=== PATIENT | male | born 1935 | race Caucasian/White ===

== ENCOUNTER 2017-01-12 13:54 | Observation (INO) | payer MEDICARE, BC ==
[2017-01-12 14:54] LABS: Hematocrit 45 % (42-52); Hemoglobin 14.9 g/dl (14.0-18.0); Mean Corpuscular HGB Conc 33 g/dl (31-36); Mean Corpuscular Hemoglobin 32 pg (27-31); Mean Corpuscular Volume 97 fL (80-94); Mean Platelet Volume 8 um3 (7.4-10.4); Red Blood Count 4.66 10^6/ul (4.0-5.4); Red Cell Distribution Width 14 % (10.5-15); White Blood Count 11.4 10^3/ul (3.5-10.8)
--- NOTE | 2017-01-12 15:01 | RAD ---
HISTORY: Chest pain COMPARISONS: November 12, 2004 VIEWS: 1: frontal portable view of the chest at 2:32 PM FINDINGS: LINES AND TUBES: None. CARDIOMEDIASTINAL SILHOUETTE: The cardiomediastinal silhouette is normal for portable technique. PLEURA: There is elevation of the right hemidiaphragm. LUNG PARENCHYMA: The lungs are clear. ABDOMEN: The upper abdomen is clear. There is no subphrenic gas. BONES AND SOFT TISSUES: No bone or soft tissue abnormalities are noted. IMPRESSION: ELEVATION OF THE RIGHT HEMIDIAPHRAGM
[2017-01-12 15:06] LABS: Troponin I 0.01 ng/mL (<0.04)
[2017-01-12 15:11] LABS: Albumin 3.9 g/dL (3.2-5.2); BUN/Creatinine Ratio 26.5 (8-20); EGFR African American 79.9 (>60); EGFR Non-African American 62.1 (>60); Globulin 2.6 g/dL (2-4); Total Bilirubin 0.6 mg/dL (0.2-1.0); Total Protein 6.5 g/dL (6.4-8.9)
--- NOTE | 2017-01-12 15:22 | RAD ---
HISTORY: Right-sided weakness COMPARISONS: May 30, 2005 TECHNIQUE: Multiple contiguous axial CT scans were obtained of the head without intravenous contrast. FINDINGS: HEMORRHAGE/INFARCT: There is no hemorrhage or acute infarct. MASSES/SHIFT: There is no mass or shift. EXTRA-AXIAL SPACES: There are no extra-axial fluid collections. SULCI AND VENTRICLES: The sulci and ventricles are normal in size and position for the patient's stated age. CEREBRUM: There is hypoattenuation of the periventricular and subcortical white matter. BRAINSTEM: There are no focal parenchymal abnormalities. CEREBELLUM: There are no focal parenchymal abnormalities. VESSELS: The vessels are grossly normal. PARANASAL SINUSES: The paranasal sinuses are clear. ORBITS: The orbits are unremarkable. BONES AND SOFT TISSUE: No bone or soft tissue abnormalities are noted. OTHER: None IMPRESSION: 1. NO ACUTE INTRACRANIAL PATHOLOGY. 2. CHRONIC SMALL VESSEL ISCHEMIC CHANGE
[2017-01-12 15:54] LABS: Potassium 4.4 mmol/L (3.5-5.0)
[2017-01-12] MEDS ORDERED: Clopidogrel TAB* 75 MG PO ONE (16:29)
[2017-01-12] MEDS ORDERED: Clopidogrel TAB* 75 MG ONE (16:43)
--- NOTE | 2017-01-12 16:49 | ED ---
Zeb Elmore SooYoung, scribed for Cristopher Reynolds MD on 01/12/17 at 1419 . Neurological HPI - HPI Summary HPI Summary: An 81 y/o M presents to ED with c/o extremity weakness intial onset approx 0330- 0400. Pt states when he awoke to use the bathroom, he experienced diffuse CP that radiated directly back to his back. He stood up and fell, due to bilateral LE weakness. When he was getting himself back up, he noticed that he had numbness in his bilateral hands. Pt went back to sleep. At 0700, he woke up and had difficulty feeding himself due to R hand weakness. Pt reports he was at baseline prior to going to sleep, at approx 2200. Denies vision changes, hearing changes, dysphagia, facial numbness/weakness. 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 PMHx: HTN but is not on medicine, TIA. He has had past episodes of weakness that spontaneously resolved. Surgical history includes back and knee surgery. Non-smoker, no alcohol. Daily medication includes Finasteride, per daughter, it makes pt dizzy. PCP is Dr. Sawyer. 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 Negative: Visual Changes - Allergy/Home Medications Allergies/Adverse Reactions: Allergies Allergy/AdvReac Type Severity Reaction Status Date / Time Molds & Smuts Allergy Intermediate Difficulty Verified 12/27/12 14:13 Breathing Home Medications: Home Medications Aspirin EC Low Dose* [Ecotrin EC Low Dose 81 MG*] 81 mg PO DAILY 01/12/17 [ History Confirmed 01/12/17] Finasteride TAB* [Proscar TAB*] 5 mg PO DAILY 01/12/17 [History Confirmed ] Probiotic Product [Probiotic Colon Support] 1 cap PO DAILY 01/12/17 [History Confirmed 01/12/17] PMH/Surg Hx/FS Hx/Imm Hx Previously Healthy: No Cardiovascular History: Reports: Hx Coronary Artery Disease, Hx Hypertension, Other Cardiovascular Problems/Disorders - CABG Respiratory History: Reports: Hx Asthma, Hx Pneumonia GI History: Reports: Other GI Disorders - GERD AND HIATAL HERNIA Neurological History: Reports: Hx Transient Ischemic Attacks (TIA) - 2005 - Surgical History Surgery Procedure, Year, and Place: BILAT KNEE SURGERY; BACK SURGERY Infectious Disease History: No Infectious Disease History: Denies: Traveled Outside the [place] in Last 30 Days - Social History Occupation: Retired Lives: With Family Alcohol Use: None Hx Tobacco Use: No Review of Systems Negative: Other - neg: visual changes Negative: Other - neg: hearing changes, dysphagia, facial numbness/weakness Positive: Chest Pain Positive: Weakness, Numbness All Other Systems Reviewed And Are Negative: Yes Physical Exam Triage Information Reviewed: Yes Vital Signs On Initial Exam: Initial Vitals Temp Pulse Resp BP Pulse Ox 98.4 F 65 16 143/73 99 01/12/17 13:56 01/12/17 13:56 01/12/17 13:56 01/12/17 13:56 01/12/17 13:56 Vital Signs Reviewed: Yes Appearance: Positive: Well-Appearing, No Pain Distress Skin: Positive: Warm, Skin Color Reflects Adequate Perfusion Head/Face: Positive: Normal Head/Face Inspection Eyes: Positive: EOMI, LÓPEZ Neck: Positive: Supple, Nontender Respiratory/Lung Sounds: Positive: Clear to Auscultation, Breath Sounds Present Cardiovascular: Positive: RRR. Negative: Murmur Abdomen Description: Positive: Nontender Musculoskeletal: Positive: Strength/ROM Intact Neurological: Positive: Alert, Oriented to Person Place, Time, CN Intact II- III. Negative: Sensory/Motor Intact - he has decreased sensation right arm and right leg, and 4/5 strength right arm and right leg. there is limb ataxia right arm. Diagnostics - Vital Signs Vital Signs Temp Pulse Resp BP Pulse Ox 01/12/17 13:56 98.4 F 65 16 143/73 99 - Laboratory Lab Results: Lab Results 01/12/17 01/12/17 01/12/17 Range/Units 14:40 14:40 14:40 WBC 11.4 H (3.5-10.8) 10^3/ul RBC 4.66 (4.0-5.4) 10^6/ul Hgb 14.9 (14.0-18.0) g/dl Hct 45 (42-52) % MCV 97 H (80-94) fL MCH 32 H (27-31) pg MCHC 33 (31-36) g/dl RDW 14 (10.5-15) % Plt Count 188 (150-450) 10^3/ul MPV 8 (7.4-10.4) um3 Neut % (Auto) 49.2 (38-83) % Lymph % (Auto) 42.4 (25-47) % Sutton % (Auto) 6.9 (1-9) % Eos % (Auto) 0.9 (0-6) % Baso % (Auto) 0.6 (0-2) % Absolute Neuts (auto) 5.6 (1.5-7.7) 10^3/ul Absolute Lymphs (auto) 4.8 (1.0-4.8) 10^3/ul Absolute Monos (auto) 0.8 (0-0.8) 10^3/ul Absolute Eos (auto) 0.1 (0-0.6) 10^3/ul Absolute Basos (auto) 0.1 (0-0.2) 10^3/ul Absolute Nucleated RBC 0 10^3/ul Nucleated RBC % 0 INR (Anticoag Therapy) 0.92 (0.89-1.11) Sodium 140 (133-145) mmol/L Potassium Pending Chloride 106 (101-111) mmol/L Carbon Dioxide 29 (22-32) mmol/L Anion Gap Pending BUN 30 H (6-24) mg/dL Creatinine 1.13 (0.67-1.17) mg/dL Est GFR ( Amer) 79.9 (>60) Est GFR (Non-Af Amer) 62.1 (>60) BUN/Creatinine Ratio 26.5 H (8-20) Glucose 89 (70-100) mg/dL Lactic Acid (0.5-2.0) mmol/L Calcium 9.0 (8.6-10.3) mg/dL Total Bilirubin 0.60 (0.2-1.0) mg/dL AST Pending ALT 17 (7-52) U/L Alkaline Phosphatase 45 (34-104) U/L Troponin I 0.01 (<0.04) ng/mL Total Protein 6.5 (6.4-8.9) g/dL Albumin 3.9 (3.2-5.2) g/dL Globulin 2.6 (2-4) g/dL Albumin/Globulin Ratio 1.5 (1-3) /16/17 Range/Units 14:40 WBC (3.5-10.8) 10^3/ul RBC (4.0-5.4) 10^6/ul Hgb (14.0-18.0) g/dl Hct (42-52) % MCV (80-94) fL MCH (27-31) pg MCHC (31-36) g/dl RDW (10.5-15) % Plt Count (150-450) 10^3/ul MPV (7.4-10.4) um3 Neut % (Auto) (38-83) % Lymph % (Auto) (25-47) % Sutton % (Auto) (1-9) % Eos % (Auto) (0-6) % Baso % (Auto) (0-2) % Absolute Neuts (auto) (1.5-7.7) 10^3/ul Absolute Lymphs (auto) (1.0-4.8) 10^3/ul Absolute Monos (auto) (0-0.8) 10^3/ul Absolute Eos (auto) (0-0.6) 10^3/ul Absolute Basos (auto) (0-0.2) 10^3/ul Absolute Nucleated RBC 10^3/ul Nucleated RBC % INR (Anticoag Therapy) (0.89-1.11) Sodium (133-145) mmol/L Potassium Chloride (101-111) mmol/L Carbon Dioxide (22-32) mmol/L Anion Gap BUN (6-24) mg/dL Creatinine (0.67-1.17) mg/dL Est GFR ( Amer) (>60) Est GFR (Non-Af Amer) (>60) BUN/Creatinine Ratio (8-20) Glucose (70-100) mg/dL Lactic Acid 1.0 (0.5-2.0) mmol/L Calcium (8.6-10.3) mg/dL Total Bilirubin (0.2-1.0) mg/dL AST ALT (7-52) U/L Alkaline Phosphatase (34-104) U/L Troponin I (<0.04) ng/mL Total Protein (6.4-8.9) g/dL Albumin (3.2-5.2) g/dL Globulin (2-4) g/dL Albumin/Globulin Ratio (1-3) Result Diagrams: 01/12/17 14:40 01/12/17 14:40 Lab Statement: Any lab studies that have been ordered have been reviewed, and results considered in the medical decision making process. - Radiology CXR Xray Interpretation: Positive (See Comments) - IMPRESSION: Elevation of R hemidiaphragm. ED physician has reviewed this radiology report and agrees. Radiology Interpretation Completed By: Radiologist - CT BRAIN CT CT Interpretation: No Acute Changes - IMPRESSION: 1. No acute intracranial pathology. 2. Chronic small vessel ischemic change. ED physician has reviewed this radiology report and agrees. - EKG 1434 Cardiac Rate: NL EKG Rhythm: Sinus Rhythm - 66 bpm EKG Interpretation: MD - 195, QRS nml, no STEMI. NIH Scale - NIH Scale Level of Consciousness: Alert/Keenly Responsive Ask Patient the Month and His/Her Age: Both Correct Ask Pt to Open/Close Eyes and Fruit Inspector/Release Non-Paretic Hand: Both Correctly Best Gaze (Only Horizontal Eye Movement): Normal Visual Field Testing: No Visual Loss Facial Paresis-Pt to Smile & Close Eyes or Grimace Symmetry: Normal/Symmetrical Motor Function - Right Arm: Drifts LT 10 seconds Motor Function - Left Arm: No Drift-Holds 10 Seconds Motor Function - Right Leg: Drifts LT 10 seconds Motor Function - Left Leg: No Drift-Holds 10 Seconds Limb Ataxia-Must be out of Proportion to Weakness Present: Present in One Limb Sensory (Use Pinprick to Test Arms/Legs/Trunk/Face): Pinprick Less on Affected Best Language (Describe Picture, Name Items): No Aphasia Dysarthria (Read Several Words): Normal Extinction and Inattention: No Abnormality Total Score: 4 Course/Dx - Course Course Of Treatment: An 81 y/o M presents to ED with c/o extremity weakness intial onset approx 9609-4583. Pt states when he awoke to use the bathroom, he experienced diffuse CP that radiated directly back to his back. He stood up and fell, due to bilateral LE weakness. When he was getting himself back up, he noticed that he had numbness in his bilateral hands. Pt went back to sleep. At 0700, he woke up and had difficulty feeding himself due to R hand weakness. Pt reports he was at baseline prior to going to sleep, at approx 2200. Denies vision changes, hearing changes, dysphagia, facial numbness/weakness. 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 PMHx: HTN but is not on medicine, TIA. He has had past episodes of weakness that spontaneously resolved. Surgical history includes back and knee surgery. Non- smoker, no alcohol. Daily medication includes Finasteride, per daughter, it makes pt dizzy. PCP is Dr. Sawyer. CXR shows R elevated hemidiaphragm. Brain CT shows no acute intracranial pathology, chronic small vessel ischemic changes. He has right side weakness and numbness. Admit to hospitalists, and Dr Garcia consulting. - Diagnoses Provider Diagnoses: Stroke, Chest pain - Physician Notifications Discussed Care Of Patient With: Luca Garcia - neuro Time Discussed With Above Provider: 15:22 Instructed by Provider To: MD Will See In ED Discharge - Discharge Plan Condition: Stable Disposition: ADMITTED TO [facility] Referrals: Tevin Sawyer MD [Primary Care Provider] - Consult Consult: 5978: Consult with Dr. Palomares, hospitalist Will admit pt The documentation as recorded by the Zeb zacarias SooYoung accurately reflects the service I personally performed and the decisions made by me, Cristopher Reynolds MD.
[2017-01-12] MEDS ORDERED: Ondansetron INJ* 2 MG/ML VIAL IV PRN (17:10)
[2017-01-12] MEDS ORDERED: Acetaminophen TAB* 325 MG PO PRN (17:10)
[2017-01-12] MEDS ORDERED: Iohexol 350* (CONTRAST) 500 ML MDV IV ONE (17:39)
--- NOTE | 2017-01-12 19:04 | RAD ---
Indication: Bilateral lower extremity weakness since 4:00 AM. Comparison: Noncontrast head CT of the same date and November 17, 2004 MRI. Technique: MicroQuanta 1.5 Renea [id number] with GEM suite. MRI brain without contrast. Report: Subcentimeter focus of restricted diffusion at the periventricular white matter of the LEFT parietal lobe with corresponding decreased signal on ADC map consistent with acute or subacute ischemia. No additional foci of restricted diffusion. Susceptibility series is negative for stigmata of hemosiderin deposition to indicate previous hemorrhage. Mild prominence of the cerebral sulci reflecting atrophy. Unremarkable ventricles and basal cisterns. Etat crible appearance of diffusely widened perivascular spaces at the basal ganglia. Extensive increased T2 FLAIR signal at the periventricular and subcortical white matter of the cerebral hemispheres increased over the previous MRI from 2004 most consistent with chronic small vessel ischemic disease. Negative for intra or extra-axial fluid collections. Preserved major intracranial flow-voids. Unremarkable orbital contents. Mild mucosal thickening at the RIGHT maxillary sinus. The paranasal sinuses are otherwise clear. Mild bilateral mastoid effusions. No suspicious calvarial or skull base lesion evident. Unremarkable scalp. IMPRESSION: 1. Solitary small focus of acute or subacute ischemia involving the periventricular white matter of the LEFT parietal lobe. Negative for associated mass effect. 2. Mild involutional change and stigmata of extensive probable chronic small vessel ischemic disease.
--- NOTE | 2017-01-12 19:21 | RAD ---
INDICATION: RIGHT side weakness. Small solitary focus of LEFT parietal periventricular white matter acute or subacute ischemia on MRI. COMPARISON: MRI of the same date TECHNIQUE: Multidetector CT images were obtained from the aortic arch to the vertex of the head with 80 mL Omnipaque 350 IV contrast. Arterial phase of enhancement. Multiplanar reformation including maximum intensity projection. 3-D arterial volume rendering. Stenosis estimations based on denominator of distal arterial diameter. 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 Normal configuration of the aortic arch branch vessels. Mild atherosclerotic plaque at the LEFT subclavian origin. Negative for aortic arch branch vessel ostial stenosis. Severe predominant calcific plaque at the RIGHT carotid bulb and proximal internal carotid artery with resulting short segment 90% stenosis. Minimal calcific and noncalcific plaque at the LEFT carotid bulb and proximal to mid LEFT internal carotid artery with less than 20% stenosis resulting. Patent dominant LEFT and diminutive RIGHT vertebral arteries. The diminutive RIGHT vertebral artery terminates in the RIGHT posterior inferior cerebellar artery, a normal variant. NECK ANGIOGRAM IMPRESSION: 1. 80% short segment stenosis at the proximal RIGHT internal carotid artery. 2. Less than 20% stenosis at the LEFT internal carotid artery. HEAD ANGIOGRAM REPORT: Calcific plaque at the intracranial internal carotid arteries with less than 50% stenosis resulting. Negative for occlusion or stenosis of the M1 or M2 middle cerebral artery segments. Patent bilateral A1 and A2 anterior cerebral artery segments. Small patent anterior communicating artery. Unremarkable patent basilar artery. Unremarkable cerebellar artery origins. Patent posterior cerebral arteries supplied primarily by the posterior circulation with normal variant hypoplastic posterior communicating arteries. No intracranial aneurysm or vascular malformation evident. HEAD ANGIOGRAM IMPRESSION: Negative for central intracranial arterial occlusion for hemodynamic significant stenosis. CPT II: CPT II Codes: 3100F Results of the MRI brain and CT angiogram head and neck reports called to Mehreen 01/12/2017 7:15 PM EST
[2017-01-12 19:42] LABS: Urine Bacteria Absent (Absent); Urine Bilirubin Negative (Negative); Urine Glucose Negative (Negative); Urine Nitrite Negative (Negative)
--- NOTE | 2017-01-12 23:17 | CONS ---
NEUROLOGY CONSULTATION NOTE: DATE OF CONSULT: 01/12/17 LOCATION: He is in the emergency room to be admitted. REFERRING PROVIDER: Dr. Reynolds. PRIMARY CARE PHYSICIAN: Tevin Sawyer MD CHIEF COMPLAINT: Right-sided weakness. 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 He tried to pull himself up and had difficulty doing so. He got to the side of the bed and when he tried to stand up, he realized that his legs were weak or at least that his right leg was weak. He went back to bed at some point and then woke up several hours later and was unable to stand and ended up on the ground. He ultimately ended up in the emergency room a little after noon. He takes aspirin 81 mg on a regular basis and he has no prior history of cerebrovascular events. He has had some chronic weakness of his left leg that he dates to prior lumbar surgery years ago. However, he walks 5 miles a day without any assistive devices. He is right handed and has not noticed any problems with coming out of the words or speech. He has not noticed any numbness on his face, but his right hand and leg feel somewhat numb. He has had some neck pain in the past and did have some type of injury, requiring a brace many years ago. He generally feels his bladder function is normal. He gets occasional headaches or perhaps neck pain, they are occipital, but nothing today. He has not had any change in weight recently or fevers or chills. Other than aspirin, his only other routine medication is finasteride. There is no history of diabetes or hypertension. MEDICATIONS: At home include; 1. Probiotic. 2. Finasteride 5 mg p.o. daily. 3. Aspirin 81 mg p.o. daily. ALLERGIES: He does not have any drug allergies. SOCIAL HISTORY: He lives independently. He does not smoke and does not drink alcohol. He walks 5 miles a day pretty regularly on the driving trail. REVIEW OF SYSTEMS: Negative for recent infections, chills, weight loss, sweats , or breathing problems. He gets occasional chest pain and had some this morning when he first woke up, but then it went away. He has some chronic limitation of motion of his left arm, which he says goes back to when he had a surgery in the proximal left upper extremity, in which a rib was removed. He does not recognize the term thoracic outlet syndrome, so I am not certain for sure what that was about. He had a cardiac catheterization in 2005, revealed mild single vessel coronary artery disease and normal systolic function. He has had bilateral total knee replacements, cholecystectomy, tonsillectomies in the past. PHYSICAL EXAM: He is well nourished and well hydrated. Temperature 98.4 by temporal scan, blood pressure 157/77, heart rate in the 60s and in sinus on the monitor. Heart is in a regular rate and rhythm without murmurs. Neck range of motion is limited, but nonpainful, although there is 1 snap, which caused him to wince. There is no meningismus. Carotid pulses are present and I do not hear any cervical bruits. Lungs are clear. Neurological Exam: Pupils react equally from 4 to 2.5 mm. Funduscopic exam reveals sharp discs bilaterally and normal fundi. There is no ptosis. Visual caldwell are full to confrontation in all 4 quadrants. Facial musculature is intact and symmetric. Facial sensation is reported as diminished to pin and light touch in the right side relative to the left. Temperature is reported as symmetric. Palate and tongue appear normal and tongue protrudes in the midline. Palate rises symmetrically. He is very hard of hearing. Neck muscle strength seems intact. Motor exam reveals increased muscle tone in both legs, possibly with a mild spastic catch. There is normal muscle tone in the arms. He has grade 4 to 4- weakness of the right upper extremity proximally and distally with a drift. He has good strength in the left arm proximally and distally. He has just grade 4 - at best right leg proximal weakness with a downward drift. He has good distal strength in the right leg. He has normal strength proximally and distally in the left leg. Sensory exam in the limbs is notable for diminished vibration sense in both feet. There is diminished pin discrimination on the right arm and leg relatively to the left. Reflexes diffusely diminished, but symmetric at biceps, brachioradialis. Trace at the knees and absent at the ankles. He has a right Babinski sign. Left plantar response is flexor. Finger taps are very clumsy in the right hand, normal on the left. Finger-to- nose maneuver is very dissymmetric on the right, normal on the left. Heel-to- alcaraz maneuver is very clumsy with the right leg, normal on the left. I did not attempt to ambulate him. He is alert and oriented, and a pretty good historian. He loses his train of thought at times. Language is fluent. Fund of knowledge is adequate. DIAGNOSTIC STUDIES/LAB DATA: Includes a CT scan of the brain, which I reviewed , reveals multifocal patchy low density in the deep white matter consistent with chronic ischemic or small vessel disease. Other laboratory data includes unremarkable chemistry profile other than a BUN of 30, troponin is 0.01. INR is normal at 0.92 and CBC is notable for borderline elevated white blood cell count at 11.4 and a slightly elevated MCV at 97. EKG is in sinus rhythm. 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 It is likely a subcortical infarction or possibly a pontine infarction particularly given the lack of aphasia in this right-handed gentleman. RECOMMENDATIONS: He is on aspirin chronically and so I recommend him giving some Plavix 75 mg now in addition to maintaining him on aspirin. He should have an MRI scan of the brain, CT angiogram of the brain and neck, telemetry and a transthoracic echocardiogram. Fasting lipids should be checked in the morning and if positive, will need to be on a statin. I explained my original impression to Mr. Hill and his daughter, who is present. I also explained my impression to Dr. Reynolds. The patient will be admitted and I will follow him along with you. [id number]/[facility] #: [id number] [facility]
--- NOTE | 2017-01-13 00:15 | HP ---
CC: Dr. Sawyer; Dr. Garcia * HISTORY AND PHYSICAL: DATE OF ADMISSION: 01/12/17 PRIMARY CARE PROVIDER: Dr. Sawyer. ATTENDING PHYSICIAN WHILE IN THE HOSPITAL: Judi Palomares MD * (report dictated by Juan Shultz NP). CHIEF COMPLAINT: 1. Right arm weakness. 2. Chest pain. HISTORY OF PRESENTING ILLNESS: Mr. Hill is an 81-year-old male patient, he has a history of chronic back pain, BPH, he has had TIA x2, hypertension, and history of SBO. He comes in, he states around 3 to 4 o'clock this morning he woke up, he noted that he was having some chest discomfort across the front of his chest, which is now gone. He had no associated nausea or shortness of breath and it did not radiate into his jaw or down his arm. He says he has not been having chest discomfort. He says he typically walks every day several miles. 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 However, though he also noted that today he had to go to use the rest room, he got up in the middle of the night. He says his right side just did not feel right, particularly his right arm felt clumsy. He says that he could not really use it at first when he got up, he said it just felt heavy. He had some numbness in his right foot. He started to walk a short distance and he fell. His leg gave out on that right side. He has handrails in the house and he tried griping it, but he could not grab the handrail, he was having trouble finding it. He was able to get up from his left side, he went back to bed. He woke up again in the morning and he noticed that he could barely move that right side again. In addition to this, he was also having trouble feeding himself. The symptoms continued throughout the day, particularly this weakness on his right side, him having difficulty with coordination. He denied any facial drooping or trouble with speech or trouble finding his words. He denied having any trouble swallowing and there was concern though, because the fact he was unable to feed himself because he was having trouble with coordination. The patient decided to come into the ER, actually he called Dr. Sawyer' office, they were concerned as he had 2 TIAs in the past and this may be another TIA or possible stroke and sent him to the ER. He was evaluated and we were asked to evaluate for admission. PAST MEDICAL HISTORY: Significant for: 1. Chronic back pain. 2. BPH. 3. TIA x2. 4. Hypertension. 5. SBO. PAST SURGICAL HISTORY: 1. The patient has had lumbar surgery x2. 2. Bilateral total knee replacements. MEDICATIONS: His home medications include: 1. Probiotic one capsule daily. 2. Proscar 5 mg daily. 3. Aspirin 81 mg daily. ALLERGIES TO MEDICATIONS: He says he is allergic to one medication, he does not know the name of it. He is allergic to MOLD. FAMILY HISTORY: His mother had diabetes. Father had lung cancer. SOCIAL HISTORY: He does not smoke. He does not drink. He lives alone. Surrogate decision maker is his daughter, Nicci. REVIEW OF SYSTEMS: There is no documented fever. He denied having any significant weight change. There was no double vision. He denies having any ear discharge. There was no rhinorrhea. No sore throat. No thyroid enlargement. He denied having any chest pain. There is no orthopnea, no nocturnal dyspnea. There is no abdominal pain. No nausea, no vomiting, no dysuria, no frequency. There was no seizure and no loss of consciousness. No pruritus and no skin ulcerations. Review of 14 systems completed, all others negative. PHYSICAL EXAMINATION GENERAL: At this time, Mr. Hill is an 81-year-old male patient. He appears to be well developed, well nourished. He does not appear to be in any acute distress. VITAL SIGNS: Blood pressure 135/67, pulse 62, respirations 18, O2 sat 99%, temperature of 98.4, he was on room air. HEENT: Head: Atraumatic. Eyes: EOMs intact. Sclerae anicteric, not pale. Throat: Oral mucosa appears to be moist. No oropharyngeal erythema. NECK: Supple. LUNGS: Clear to auscultation bilaterally. No wheezes, rales, or rhonchi. HEART: Sounds S1, S2. Regular rate and rhythm. No murmurs, rubs, or gallops. ABDOMEN: Soft, flat, nontender. Bowel sounds present. EXTREMITIES: Pulses were 2+ throughout. He had 5/5 strength on the left side. He did have 5/5 strength on the right as well. NEUROLOGICAL: He is awake, alert, oriented x3. His speech is clear. His tongue is midline. [id number]-[id number] is intact on the left side. Okub-xe-ecyp intact on the left. On the right, he does have limb ataxia, particularly in the left upper extremity, he is noted to be having difficulty touching my finger and he is getting to his nose, but it is much slower on that right side when compared to the left side. He does have a right-sided pronator drift as well. His second mate were equal. His tongue was midline. He had no facial drooping. No trouble with vision. His visual caldwell were intact. Cranial nerves II through XII were intact. No other gross focal deficits. SKIN: Intact. DIAGNOSTIC STUDIES/LAB DATA: WBC of 11.4, RBC of 4.66, hemoglobin of 14.9, hematocrit 45, platelet count of 188,000. INR 0.92. Sodium 140, potassium 4.4 , chloride 106, bicarb 29, BUN 30, creatinine 1.13, glucose 89, lactate 1, calcium 9. Total bili 0.6, AST 16, ALT 17, alk phos 45. Troponin 0.01. Albumin of 3.9. He did have a CT of the brain, which revealed no acute intracranial pathology, chronic small vessel ischemic change. Chest x-ray showed elevation of the right hemidiaphragm. EKG shows a left anterior fascicular block, normal sinus rhythm with a rate of 66. He did have what appeared to be J-point elevation in V2 and V3. No previous EKGs for comparison. Old medical records reviewed. ASSESSMENT AND PLAN: Mr. Hill is an 81-year-old male patient coming into the ER today with complaints of chest discomfort, in addition to this right-sided weakness. He will be admitted under observation status for: 1. Cerebrovascular accident. I suspect at this point the patient probably had a stroke and that is why he is having some ataxia on the right side. In addition to this, he is also having pronator drift. Plan is to go ahead and put him on aspirin and Plavix per recommendations of Dr. Garcia. We will go ahead and get a CTA of the head and neck, echo with bubble study, lipid panel, A1c, telemetry. We will allow for permissive hypertension. In addition to this , we will get neuro checks every 2 hours, follow him closely and get an MRI of the brain and we will follow. I did order PT/OT. 2. Chest pain. Again at this point, I am not going to do a stress test in the setting of a possible acute cerebrovascular accident. I am going to cycle his troponins, get an echo. This can be further worked up in the outpatient setting. He is on an aspirin currently. Again, he is going to be put on Plavix. 3. Chronic back pain. Continue meds as prescribed. 4. Benign prostatic hyperplasia. Continue his Proscar. 5. History of hypertension. Again, in the setting of acute stroke, we will allow for permissive hypertension. 6. DVT prophylaxis: Because of the possible stroke, I am just going to put him on SCDs. We will get the MRI. Certainly, if this is positive, we could consider starting heparin tomorrow subcu for DVT prophylaxis, but I going to hold off as I do not want him to have a hemorrhagic conversion. 7. Code status: Full code. 8. Fluids, electrolytes, and nutrition: He passed a swallow eval at bedside with me. Again, he will have a heart-healthy diet. TIME SPENT: On this admission was 60 minutes, greater than half the time was spent [id number] with the patient obtaining my history and physical, other half time was spent going over the plan of care with the patient and implementing the plan of care. I did discuss the plan of care with my attending, Dr. Palomares; she is in agreement. JUAN SHULTZ, COOPER [id number]/CPS #: [id number] SRINI
[2017-01-13 05:26] LABS: Hematocrit 44 % (42-52); Hemoglobin 14.6 g/dl (14.0-18.0); Mean Corpuscular HGB Conc 33 g/dl (31-36); Mean Corpuscular Hemoglobin 32 pg (27-31); Mean Corpuscular Volume 96 fL (80-94); Mean Platelet Volume 7 um3 (7.4-10.4); Red Blood Count 4.53 10^6/ul (4.0-5.4); Red Cell Distribution Width 14 % (10.5-15); White Blood Count 7.7 10^3/ul (3.5-10.8)
[2017-01-13 05:38] LABS: Calcium 8.6 mg/dL (8.6-10.3); EGFR African American 105.2 (>60); EGFR Non-African American 81.8 (>60); HDL Cholesterol 53.1 mg/dL; Potassium 3.9 mmol/L (3.5-5.0)
[2017-01-13] MEDS ORDERED: Finasteride TAB* 5 MG PO SCH (09:00)
[2017-01-13] MEDS ORDERED: Aspirin EC Low Dose* 81 MG TAB.EC PO SCH (09:00)
[2017-01-13] MEDS ORDERED: Clopidogrel TAB* 75 MG PO SCH (09:00)
[2017-01-13] MEDS: [UNRECOGNIZED DRUG - OTHER] PO SCH ×2 (12:59→17:08)
--- NOTE | 2017-01-13 16:49 | ECHO ---
Patient: KAT QURESHI [facility] Rec#: [id number] : 1935 Date: 01/13/2017 Age: 81y Height: 172.72 cm / 68.0 in Weight: 68.04 kg / 150.0 lbs Sex: M BSA: 1.81 Room#: 440 Admit Date#: 01/12/2017 Type: Inpatient Referring: Juan Shultz NP Reading: Gera Rose DO Mysql Dba: Carolina Goins RDCS CC: Tevin Sawyer MD Transthoracic Echocardiogram Indication: CVA BP: 129/66 HR: 61 Rhythm: NSR Findings History: HTN, TIA x2, chronic back pain. Technical Comments: The study quality is fair. Completed at 1630. Left Ventricle: The left ventricular chamber size is normal. Mild concentric left ventricular hypertrophy is observed. There is a prominent septal knuckle. Global left ventricular wall motion and contractility are within normal limits. Left ventricular systolic function is at the lower limits of normal. The estimated ejection fraction is 50-55%. Abnormal left ventricular diastolic filling is observed, consistent with impaired relaxation. Left Atrium: The left atrium is mildly dilated. Right Ventricle: Moderator Band present. The right ventricle is mildly dilated. The right ventricular global systolic function is normal. Right Atrium: The right atrial cavity size is normal. Interatrial septum appears intact without evidence of shunting. The bubble study is negative. A patent foramen ovale is not demonstrated with color Doppler and agitated contrast. Aortic Valve: The aortic valve is trileaflet. The aortic valve leaflets are mildly thickened. There is a trace of aortic regurgitation. There is no evidence of aortic stenosis. Mitral Valve: The mitral valve leaflets are mildly thickened. There is mild mitral regurgitation. There is no evidence of mitral stenosis. Tricuspid Valve: The tricuspid valve leaflets are normal. There is mild tricuspid regurgitation. No pulmonary hypertension is noted. There is no tricuspid stenosis. Pulmonic Valve: The pulmonic valve appears normal. There is a trace pulmonic regurgitation. There is no pulmonic stenosis. Pericardium: There is no significant pericardial effusion. Aorta: There is mild dilatation of the ascending aorta. There is no dilatation of the aortic arch. There is mild dilatation of the aortic root. Pulmonary Artery: The main pulmonary artery is not well visualized. Venous: The inferior vena cava appears normal in size. There is a greater than 50% respiratory change in the inferior vena cava dimension. Contrast: Normal saline was used as contrast for the bubble study. Images 1 and 2. Intravenous contrast was used to help determine presence of intracardiac shunting. Conclusions The left ventricular chamber size is normal. Mild concentric left ventricular hypertrophy is observed. Left ventricular systolic function is at the lower limits of normal. The estimated ejection fraction is 50-55%. The left atrium is mildly dilated. The right ventricle is mildly dilated. The right ventricular global systolic function is normal. No more than mild valvular regurgitation noted. There is mild dilatation of the ascending aorta and aortic root The agitated saline "bubble study" is negative. No prior studies available for comparison at time of interpretation. Measurements Name Value Normal Range RVIDd (AP) 2D 2.8 cm (0.9 - 2.6) RVDdMajor (2D) 4.6 cm (2.2 - 4.4) RAd ISD 4CH 4.5 cm (3.4 - 4.9) RA (A4C)W 4.5 cm (2.9 - 4.6) IVSd (2D) 1.2 cm (0.6 - 1) LVPWd (2D) 1.1 cm (0.6 - 1) LVIDd (2D) 5 cm (3.6 - 5.4) LVIDs (2D) 3.9 cm - LV FS (2D) 22 % (25 - 45) Aortic Annulus 2.5 cm (1.4 - 2.6) Ao root diameter (2D) 3.8 cm (2.1 - 3.5) Ascending Ao 4 cm (2.1 - 3.4) Aortic arch 3.2 cm (1.8 - 3.4) LA dimension (AP) 2D 3.3 cm (2.3 - 3.8) LAd ISD 4CH 4.3 cm (2.9 - 5.3) LA ISD 4CH W 5.1 cm (2.5 - 4.5) Name Value Normal Range LA ESV SP 4CH (A/L) 70 ml - LA ESV SP 2CH (A/L) 51 ml - LA ESV BP (A/L) 65 ml - LA ESV BP (A/L) index 35.65 ml/m2 - LA ESV SP 4CH (MOD) 54 ml - LA ESV SP 2CH (MOD) 49 ml - Name Value Normal Range MV E-wave Vmax 0.56 m/sec - MV deceleration time 267.84 msec - MV A-wave Vmax 0.75 m/sec - MV E:A ratio 0.75 ratio - LV septal e' Vmax 0.06 m/sec - LV lateral e' Vmax 0.07 m/sec - LV E:e' septal ratio 9.33 ratio - LV E:e' lateral ratio 8 ratio - Name Value Normal Range AV Vmax 1.02 m/sec - AV VTI 22.06 cm - AV peak gradient 4.17 mmHg - AV mean gradient 2.39 mmHg - LVOT Vmax 0.81 m/sec - LVOT VTI 18.01 cm - LVOT peak gradient 2.61 mmHg - LVOT mean gradient 1.32 mmHg - BUCK Vmax 0.65 m/sec - Name Value Normal Range TR Vmax 2.2 m/sec - TR peak gradient 19 mmHg - RAP 3 mmHg - RVSP 22 mmHg - IVC diameter 1.8 cm - Name Value Normal Range PV Vmax 0.69 m/sec - PV peak gradient 1.94 mmHg - MT end-diastolic Vmax 0.67 m/sec -
[2017-01-13 17:03] VITALS: BP 99/60
--- NOTE | 2017-01-14 01:18 | CONS ---
FOLLOWUP CONSULTATION: DATE OF FOLLOWUP: 01/13/17 He is in room 440. HOSPITALIST: Cornell Alarcon MD CHIEF COMPLAINT: Right-sided weakness. INTERVAL HISTORY: Since yesterday, Mr. Hill feels his strength is somewhat better. He still has clumsiness and weakness of the right hand and arm, but he feels it is improved. He has been able to walk a little bit today with some persistent weakness of the right leg. MEDICATIONS: Medications are reviewed. He is on: 1. Aspirin 81 mg p.o. daily. 2. Plavix 75 mg p.o. daily. 3. Finasteride 5 mg p.o. daily. 4. Ondansetron 4 mg IV q.6 hours. 5. Acetaminophen p.r.n. PHYSICAL EXAMINATION: He is afebrile, blood pressure is running anywhere from 100 systolic to 140, diastolics from 60 to 75. Heart rate is in the 60s and seems regular. Respirations 14 and oxygen saturation 99% on room air. Neurologically, he has minimal flattening of the right nasolabial fold. Speech is clear. He has grade 4 strength proximally and distally in the right upper extremity with slow activation of his muscles. He has a grade 4 to 4+ right hip flexor and ankle dorsiflexor weakness. He has normal strength in the left. Finger taps are very slow and clumsy in the right hand, normal on the left. He is alert and in excellent spirits. Memory is good. Language is fluent. He is quite hard of hearing. DIAGNOSTIC STUDIES/LABORATORY DATA: Includes an MRI of the brain, which I reviewed and reveals a very small left parietal periventricular infarct. CT angiogram of the brain is unremarkable and CT angiogram of the neck reveals approximately 80% right carotid stenosis and 20% left carotid stenosis. Transthoracic echocardiogram done this evening is essentially unremarkable. Other laboratory data includes normal CBC today, chemistries notable for troponin peaked at 0.04 and is down to 0.01 today, cholesterol 144 and LDL 72. Hemoglobin A1c 5.3%. IMPRESSION: Small subcortical left hemisphere infarction. 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 However, with normal telemetry and echocardiogram, I think aspirin plus Plavix for 90 days to be followed by Plavix therapy alone is the recommended approach. He lives with his daughter and has a single floor apartment, so I think he could be discharged home for outpatient physical therapy, which I think is perfectly appropriate. I will see him in my office in followup in a few weeks and a plan to switch him to antiplatelet monotherapy in about 90 days. [id number]/[facility] #: [id number] MTDD
--- NOTE | 2017-01-14 14:27 | DS ---
DISCHARGE SUMMARY: DATE OF ADMISSION: 01/12/17 DATE OF DISCHARGE: 01/13/17 ADMITTING PROVIDER: Juan Shultz NP. ATTENDING PHYSICIAN: Cornell Alarcon MD. PRIMARY CARE PROVIDER: Dr. Sawyer. CHIEF COMPLAINT: Right arm weakness and chest pain. 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 PAST MEDICAL HISTORY: Chronic back pain, BPH, TIAs x2, hypertension, small- bowel obstruction. HISTORY OF PRESENT ILLNESS AND HOSPITAL COURSE: Mr. Winston Hill is an 81-year - old male with PMH as above, who on the morning of admission, around 3 to 4 a.m., woke up with chest discomfort across the front of his chest who later described as warmth sensation. He had no shortness of breath, nausea, radiation of the sensation at that time. For H and P (please see for further details). He got up in the middle of the night and his right side just did not feel right; particularly his right arm felt clumsy and heavy. He had some numbness in his right foot. He tried to walk a short distance and fell with his leg giving in on that right side. Of note, he has handrails in his house and tried to client coordinator it, but could not do so. He went back to bed and woke up again the morning of admission and noticed he could barely move the right side of his body again and was sufficiently unable to feed himself. Of note, he is right handed. Symptoms continued to be constant throughout the day. He denied any facial drooping or trouble with speech. He called Dr. Sawyer' office; given history of 2 TIAs and focal neurological deficits, advised to present to the emergency room. CT of his head, noncontrast, showed no acute intracranial pathology. Dr. Garcia from Neurology was consulted and recommended a brain MRI. He demonstrated 4 to 4- weakness in the right upper extremity and pronator drift and 4- at best in the right leg, with again downward drift. He was dysmetric on [id number]. Dprh-dy-[id number] and finger taps were clumsy on the right side. Given suspicion of cerebrovascular event, he was started on Plavix in addition to his home aspirin. He had a brain MRI without contrast on 01/12, which showed a solitary small focus of acute or subacute ischemia involving the periventricular white matter of the left parietal lobe with no associated mass effect and also mild involutional change and stigmata of extensive probable chronic small vessel ischemic disease. He had a lipid panel , which demonstrated LDL of 72, HDL 53, triglycerides of 97. His hemoglobin A1c was 5.3. He had a head CTA, which demonstrated a short segment of proximal internal carotid artery stenosis of the right side listed in report as alternatively 80% versus 90%, and 20% on the left side. Head angiogram was negative for central intracranial arterial occlusion or hemodynamic significant stenosis. He had a transthoracic echocardiogram, which demonstrated preserved ejection fraction. No patent foramen ovale seen on bubble study. No thrombus noted. EF 50% to 55%. Patient worked with physical therapy and was able to ambulate with a cane. He lives in the bottom floor of a 2-matt house along with his daughter and son-in-law and upon consultation with Dr. Garcia thought he was stable for discharge home with outpatient physical therapy and Vascular Surgery outpatient followup to discuss his right-sided internal carotid artery stenosis, though notes list was on the opposite side from where his stroke occurred. Patient, as mentioned, will continue his aspirin and additional Plavix. DISCHARGE MEDICATIONS: Include: 1. Plavix 75 mg p.o. daily (new). 2. Proscar 5 mg p.o. daily. 3. Aspirin 81 mg daily. 4. Probiotic 1 capsule p.o. daily. DIET: Heart healthy. ACTIVITY LEVEL: No restrictions, but given residual right-sided weakness, now needing a cane for ambulation, he will pursue outpatient physical therapy on discharge. FOLLOWUP: The patient to follow up with Dr. Sawyer of [place] and vascular surgeons likely through [facility] for potential CEA of right side or at least discussion thereof. He should follow up with Dr. Garcia within 2 to 4 weeks as well. Time spent on discharge, 35 minutes. [id number]/[facility] #: [id number] SRINI
== END 2017-01-13 20:11 | disposition home or self-care (01) ==
LOC: ED 13:54 → MEDTELE 16:29
PROVIDERS: ADMIT Internal Medicine; ATTEND Internal Medicine
DX: I63.9 Cerebral infarction, unspecified (principal); G81.91 Hemiplegia, unspecified affecting right dominant side; R07.9 Chest pain, unspecified; N40.0 Benign prostatic hyperplasia without lower urinary tract symptoms; M54.9 Dorsalgia, unspecified; I10 Essential (primary) hypertension; I44.4 Left anterior fascicular block; I51.7 Cardiomegaly; Z79.82 Long term (current) use of aspirin; Z79.899 Other long term (current) drug therapy
CPT/HCPCS: 36415; 70450; 70496; 70498; 70551; 71010; 80048; 80053; 80061; 81003; 81015; 83036; 83605; 84484; 85025; 85610; 93005; 93306; 99284; A9270-GY; G0378; G8981-GP-CJ; G8982-GP-CH; G8983-GP-CH; G8990-GO-CI; G8991-GO-CH; G8992-GO-CH; Q9967

== ENCOUNTER 2017-02-26 12:30 | Emergency (ER) | payer MEDICARE, BC ==
[2017-02-26 14:06] VITALS: BP 122/59
--- NOTE | 2017-02-26 16:25 | ED ---
Aj Elmore Tecjoon, scribed for Cristopher Yañez MD on 02/26/17 at 1313 . Throat Pain/Nasal Congestion - HPI Summary HPI Summary: This patient is a 81 year old male presenting to [facility] accompanied by family with a chief complaint of red eye injection since this morning. Patient has blood, redness, and swelling noted in right eye. Patient states that his vision is foggy with a film over it, but was able to accurately note the number of fingers present. Patient is on Plavix and aspirin. - History of Current Complaint Chief Complaint: EDEyeProblem Hx Obtained From: Patient Onset/Duration: Lasting Hours, Still Present Associated Signs And Symptoms: Positive: Negative Cough: None - Allergies/Home Medications Allergies/Adverse Reactions: Allergies Allergy/AdvReac Type Severity Reaction Status Date / Time Molds & Smuts Allergy Intermediate Difficulty Verified 12/27/12 14:13 Breathing PMH/Surg Hx/FS Hx/Imm Hx Previously Healthy: No Endocrine/Hematology History: Denies: Hx Diabetes Cardiovascular History: Reports: Hx Coronary Artery Disease, Hx Hypertension, Other Cardiovascular Problems/Disorders - CABG Denies: Hx Pacemaker/ICD Respiratory History: Reports: Hx Asthma, Hx Pneumonia GI History: Reports: Other GI Disorders - GERD AND HIATAL HERNIA History: Denies: Hx Renal Disease Musculoskeletal History: Reports: Hx Back Problems Sensory History: Reports: Hx Contacts or Glasses, Hx Hearing Aid - REMOVED Opthamlomology History: Reports: Hx Contacts or Glasses Neurological History: Reports: Hx Transient Ischemic Attacks (TIA) - 2004 Psychiatric History: Denies: Hx Panic Disorder - Surgical History Surgery Procedure, Year, and Place: BILAT KNEE REPLACEMENT; LSP FUSION; TONSILECTOMY; JOSE L; LEFT RIB REPAIR; VASECTOMY; CAROTID ENDARTERECTOMY Infectious Disease History: No Infectious Disease History: Denies: Traveled Outside the [place] in Last 30 Days - Family History Known Family History: Positive: Hypertension - Social History Occupation: Retired Lives: With Family Alcohol Use: None Hx Substance Use: No Substance Use Type: Reports: None Hx Tobacco Use: No Smoking Status (MU): Never Smoked Tobacco Review of Systems Negative: Fever Positive: Blurred Vision, Erythema, Other - injection All Other Systems Reviewed And Are Negative: Yes Physical Exam - Summary Physical Exam Summary: VITAL SIGNS: Reviewed. GENERAL: Patient is a well-developed and nourished male who is lying comfortable in the stretcher. Patient is not in any acute respiratory distress. HEAD AND FACE: No signs of trauma. No ecchymosis, hematomas or skull depressions. No sinus tenderness. EYES: PERRLA, EOMI x 2, right bullous subconjunctival hemorrhage EARS: Hearing grossly intact. Ear canals and tympanic membranes are within normal limits. MOUTH: Oropharynx within normal limits. NECK: Supple, trachea is midline, no adenopathy, no JVD, no carotid bruit, no c- spine tenderness, neck with full ROM. CHEST: Symmetric, no tenderness at palpation LUNGS: Clear to auscultation bilaterally. No wheezing or crackles. CVS: Regular rate and rhythm, S1 and S2 present, no murmurs or gallops appreciated. ABDOMEN: Soft, non-tender. No signs of distention. No rebound no guarding, and no masses palpated. Bowel sounds are normal. GI: Full catheter in place. EXTREMITIES: FROM in all major joints, no edema, no cyanosis or clubbing. NEURO: Alert and oriented x 3. No acute neurological deficits. Speech is normal and follows commands. SKIN: Dry and warm. Healing carotid endarterectomy scar Triage Information Reviewed: Yes Vital Signs On Initial Exam: Initial Vitals Temp Pulse Resp BP Pulse Ox 98.4 F 57 16 122/53 96 02/26/17 12:35 02/26/17 12:35 02/26/17 12:35 02/26/17 12:35 02/26/17 12:35 Vital Signs Reviewed: Yes - Hubbell Coma Scale Coma Scale Total: 15 Diagnostics - Vital Signs Vital Signs Temp Pulse Resp BP Pulse Ox 02/26/17 12:35 98.4 F 57 16 122/53 96 - Laboratory Lab Statement: Any lab studies that have been ordered have been reviewed, and results considered in the medical decision making process. EENT Course/Dx - Course Course Of Treatment: This patient is a 81 year old male presenting to [facility] accompanied by family with a chief complaint of red eye injection since this morning. Patient has blood, redness, and swelling noted in right eye. Patient states that his vision is foggy with a film over it, but was able to accurately note the number of fingers present. Patient is on Plavix and aspirin. Visual acuity: Left 20/50 and Right 20/30. We discussed patient care with Dr. Rolle (Mixer Operator Vacuum Pan Salt) at 1348 and he plans to follow up with the patient in one week. Patient will be discharged with subconjunctival hemorrhage of right eye and is advised to follow up with PCP and Dr. Rolle in 1 week. The patient is agreeable with this plan. - Differential Diagnoses Differential Diagnoses: Abrasion, Conjunctivitis, Glaucoma - Diagnoses Provider Diagnoses: Subconjunctival hemorrhage of right eye - Provider Notifications Discussed Care Of Patient With: Melecio Rolle MD - [employer]er Operator [employer] Time Discussed With Above Provider: 13:48 - We discussed patient care with Dr. Rolle (Mixer Operator Vacuum Pan Salt) at 1348 and he plans to follow up with the patient in one week. Discharge - Discharge Plan Condition: Stable Disposition: HOME Patient Education Materials: Subconjunctival Hemorrhage (ED) Referrals: Tevin Sawyer MD [Primary Care Provider] - 1 Week Sariah COLE,Melecio Arvizu [Medical Doctor] - 1 Week Additional Instructions: Patient will be discharged with subconjunctival hemorrhage of right eye and is advised to follow up with PCP and Dr. Rolle in 1 week. The patient is agreeable with this plan. Return to the ED for persisting or worsening symptoms. The documentation as recorded by the Aj zacarias Tecjoon accurately reflects the service I personally performed and the decisions made by , Cristopher Yañez MD.
== END 2017-02-26 14:05 | disposition home or self-care (01) ==
LOC: ED 12:30
DX: H11.31 Conjunctival hemorrhage, right eye (principal); H53.8 Other visual disturbances; L53.9 Erythematous condition, unspecified
CPT/HCPCS: 99282

== ENCOUNTER 2017-04-03 09:43 | Observation (INO) | payer MEDICARE, BC ==
--- NOTE | 2017-03-27 13:22 | HP ---
CC: Dr. Sawyer; Dr. Garcia * ADMITTING HISTORY AND PHYSICAL: DATE OF ADMISSION: 04/03/17 ADMITTING DIAGNOSES: 1. Prostate enlargement. 2. Urinary retention. PLANNED PROCEDURE: Transurethral resection of prostate. SURGEON: Dr. Layton. HISTORY OF PRESENT ILLNESS: Winston Hill is an 81-year-old gentleman with a longstanding history of prostate enlargement. He had carotid endarterectomy done in [place] in January and developed acute urinary retention after that. He has been on Proscar and Flomax and has failed multiple voiding trials since then and is now being brought in for transurethral resection of prostate. PAST MEDICAL HISTORY: 1. 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 2. Prostate enlargement. 3. Hypertension. MEDICATIONS ON ADMISSION: 1. Aspirin 81 mg a day. 2. Plavix, which is currently on hold. 3. Finasteride 5 mg daily. 4. Metoprolol 50 mg twice a day. 5. Tamsulosin 0.4 mg once a day. ALLERGIES AND INTOLERANCES: SULFA, LEVAQUIN, HYDROCODONE, and AGGRENOX. PHYSICAL EXAMINATION GENERAL: Reveals a pleasant elderly gentleman. VITAL SIGNS: Blood pressure is 122/72, pulse 62 per minute and regular, oxygen saturation 98% on room air. LUNGS: Clear bilaterally. CARDIOVASCULAR: Regular rate and rhythm. S1, S2. ABDOMEN: Soft without masses. A Locke catheter is in place draining clear urine. IMPRESSION: An 81-year-old gentleman who has failed multiple voiding trials in spite of being on Flomax and Proscar and is now being brought in for transurethral resection of prostate. Discussed the risk of surgery including bleeding, infection, persistent urinary retention, and urinary incontinence. I have also discussed the increased risk of cardiac or stroke complications, given his past medical history and he would like to try to get rid of the catheter and is now being brought in for transurethral resection of prostate. [id number]/[facility] #: [id number] [facility]
[~2017-04-03 09:43] MED LIST: Buffered Lidocaine 0.9% SYRIN* 5 ML/SYR SYRINGE INTRADERM ONE; Dexamethasone IV* 4 MG/ML 1 ML (4 MG) IV SLOW PU ONE; Famotidine IV* 10 MG/ML 2 ML (20 mg) IV ONE; Gentamicin ADULT (*) 160 MG in NS 0.9% 100 ML* 100 ML IVPB ONE; Sodium Citrate/Citric Acid* 15 ML UDC PO ONE
[2017-04-03] MEDS ORDERED: Dexamethasone IV* 4 MG/ML 1 ML (4 MG) ONE (09:53)
[2017-04-03] MEDS ORDERED: Sodium Citrate/Citric Acid* 15 ML UDC ONE (09:53)
[2017-04-03] MEDS ORDERED: cefTRIAXone(*) 2 GM ADDV.VIAL IVPB ONE (09:53)
[2017-04-03] MEDS ORDERED: Famotidine IV* 10 MG/ML 2 ML (20 mg) ONE (09:53)
[2017-04-03] MEDS ORDERED: Buffered Lidocaine 0.9% SYRIN* 5 ML/SYR SYRINGE ONE (09:53)
[2017-04-03] MEDS ORDERED: fentaNYL* 50 MCG/ML 2 ML VIAL (100 MCG VIAL) ONE (11:29)
[2017-04-03] MEDS ORDERED: Midazolam* 1 MG/ML 2 ML VIAL (2 MG) ONE (11:29)
[2017-04-03] MEDS ORDERED: Etomidate* 2 MG/ML 10 ML VIAL ONE (11:58)
[2017-04-03] MEDS ORDERED: Propofol* 10 MG/ML 20 ML BTL IV PUSH ONE (13:00)
[2017-04-03] MEDS ORDERED: HYDROmorphone INJ* 1 MG/ML CARPUJECT SYRINGE IV PRN (13:25)
[2017-04-03] MEDS ORDERED: Ondansetron INJ* 2 MG/ML VIAL IV PRN (13:25)
[2017-04-03] MEDS ORDERED: Naloxone* 0.4 MG/ML 1 ML VIAL IV PRN (13:25)
[2017-04-03] MEDS ORDERED: oxyCODONE/Acetamin 5/325 MG* TAB PO PRN ×2 (13:25→15:48)
[2017-04-03] MEDS ORDERED: fentaNYL* 50 MCG/ML 2 ML VIAL (100 MCG VIAL) IV PRN (13:25)
[2017-04-03] MEDS ORDERED: Furosemide IV* 10 MG/ML 2 ML VIAL (20 MG) ONE (13:57)
[2017-04-03] MEDS ORDERED: Acetaminophen TAB* 325 MG PO PRN (15:47)
[2017-04-03] MEDS ORDERED: Oxybutynin TAB* 5 MG PO PRN (15:49)
[2017-04-03] MEDS: Metoprolol Tartrate TAB* 25 MG PO SCH (21:41)
[2017-04-03] MEDS: Docusate CAP* 100 MG PO SCH (21:42)
[2017-04-04] MEDS ORDERED: Aspirin EC Low Dose* 81 MG TAB.EC PO SCH (09:00)
[2017-04-04] MEDS: Metoprolol Tartrate TAB* 25 MG PO SCH (09:43)
[2017-04-04] MEDS: Docusate CAP* 100 MG PO SCH (09:43)
[2017-04-04] MEDS ORDERED: Furosemide IV* 10 MG/ML 2 ML VIAL (20 MG) IV ONE (10:00)
[2017-04-04] MEDS ORDERED: cefTRIAXone(*) 2 GM in D5W 50 ML BAG* 50 ML IVPB ONE (10:00)
--- NOTE | 2017-04-04 11:41 | OP ---
Cc: Dr. Sawyer * DATE OF OPERATION: 04/03/17 - ROOM #334 DATE OF : 33 SURGEON: Jose Layton MD ANESTHESIOLOGIST: Dr. Zamudio. ANESTHESIA: General. PRE-OP DIAGNOSIS: 1. Benign prostatic hypertrophy. 2. Urinary retention. POST-OP DIAGNOSIS: 1. Benign prostatic hypertrophy. 2. Urinary retention. OPERATIVE PROCEDURES: 1. Transurethral resection of prostate. 2. Transurethral incision of bladder neck. COMPLICATIONS: None. ESTIMATED BLOOD LOSS: Less than 100 cc. FLUID REPLACEMENT: Crystalloid. CATHETER: 24-Icelandic 30 cc Locke (45 cc in balloon). POSTOPERATIVE CONDITION: Stable. INDICATION: Winston Hill is an 81-year-old gentleman with history of persistent urinary retention in spite of being on Proscar and Flomax. DESCRIPTION OF PROCEDURE: After induction of general anesthesia, the patient was placed in dorsal lithotomy position, sequential compression devices were in place and functioning. Initial evaluation revealed a normal appearing urethra ( mild stricture at meatus dilated with urethral dilators). The prostate was moderately enlarged with a large vascular median lobe. The bladder was trabeculated, but otherwise unremarkable. Transurethral resection of prostate was carried out with median lobe and the floor of the prostate being resected first followed by the lateral lobe tissue and then the interior tissue. The resected tissue was removed using Ellik evacuator. Transurethral incision of the bladder neck was carried out at the 12 , 5 and 7 o'clock positions in an effort to minimize any potential chance for postoperative bladder neck contracture. A 24-Icelandic 30 cc Locke was introduced without difficulty and placed on moderate traction. The patient tolerated the procedure satisfactorily and was transferred back to recovery area in stable condition. [id number]/[facility] #: [id number] [facility]
[2017-04-04 12:00] VITALS: BP 116/61
== END 2017-04-04 14:05 | disposition home or self-care (01) ==
LOC: OR 09:43 → SSU 15:42
PROVIDERS: ADMIT Urology; ATTEND Urology
DX: N40.0 Benign prostatic hyperplasia without lower urinary tract symptoms (principal); R33.9 Retention of urine, unspecified; Z86.79 Personal history of other diseases of the circulatory system; Z79.82 Long term (current) use of aspirin
CPT/HCPCS: 88305; 96374; A9270-GY; G0378; J0696; J1100; J1580; J1940; J2250; J2704; J3010

== ENCOUNTER 2017-04-11 02:12 | Emergency (ER) | payer MEDICARE, BC ==
[2017-04-11] MEDS ORDERED: Lidocaine 2% JELLY* 6 ML JELLY TOPICAL ONE ×2 (03:01→04:35)
--- NOTE | 2017-04-11 04:18 | ED ---
aKrthik Elmore Thomas, scribed for Dayanara Robertson MD on 04/11/17 at 0353 . GI/ HPI - HPI Summary HPI Summary: The patient is an 81 year old male referred to the emergency department by his urologist with urinary retention and hematuria that began earlier today. The patient had TURP performed a week ago. He complains of a pressure sensation when voiding. He denies fever and chills. - History of Current Complaint Chief Complaint: EDUrogenitalProblems Time Seen by Provider: 04/11/17 02:22 Stated Complaint: BLEEDING FOLLOWING SURGERY Hx Obtained From: Patient Onset/Duration: Started Hours Ago - earlier today, Still Present Timing: Constant Severity: Moderate Current Severity: Moderate Pain Intensity: 4 Pain Characteristics: Pressure Associated Signs and Symptoms: Positive: Other: - urinary retention, hematuria Alleviating Factor(s): Nothing - Additional Pertinent History Primary Care Physician: [id number] - Allergy/Home Medications Allergies/Adverse Reactions: Allergies Allergy/AdvReac Type Severity Reaction Status Date / Time Sulfa (Sulfonamide Allergy Intermediate Hives Verified 04/04/17 08:50 Antibiotics) mold Allergy Unknown Unknown Verified 04/04/17 08:50 Reaction Details aspirin [From Aggrenox] Allergy Unknown Verified 04/03/17 10:10 Reaction Details dipyridamole [From Aggrenox] Allergy Unknown Verified 04/03/17 10:10 Reaction Details hydrocodone Allergy Unknown Verified 04/03/17 10:10 Reaction Details levofloxacin [From Levaquin] Allergy Unknown Verified 04/03/17 10:10 Reaction Details PMH/Surg Hx/FS Hx/Imm Hx Endocrine/Hematology History: Denies: Hx Diabetes Cardiovascular History: Reports: Hx Coronary Artery Disease, Hx Hypertension, Hx Peripheral Vascular Disease, Other Cardiovascular Problems/Disorders Denies: Hx Pacemaker/ICD Respiratory History: Reports: Hx Asthma, Hx Pneumonia GI History: Reports: Hx Gastroesophageal Reflux Disease, Hx Hiatal Hernia, Other GI Disorders - Hx of SBO History: Reports: Other Problems/Disorders - BPH Denies: Hx Renal Disease Musculoskeletal History: Reports: Hx Back Problems, Hx Tendonitis - right shoulder and elbow Sensory History: Reports: Hx Cataracts - right eye, Hx Contacts or Glasses - glasses, Hx Hearing Aid - sometimes- states they don't work Opthamlomology History: Reports: Hx Cataracts - right eye, Hx Contacts or Glasses - glasses Neurological History: Reports: Hx Nerve Disease - r/t stroke, Hx Transient Ischemic Attacks (TIA) - 2004 Psychiatric History: Reports: Hx Anxiety Denies: Hx Panic Disorder - Cancer History Hx Chemotherapy: No - Surgical History Surgery Procedure, Year, and Place: BILAT KNEE REPLACEMENT 21 years ago [facility], 2nd knee 15 years ago [facility]; LSP FUSION x2; TONSILECTOMY; JOSE L; LEFT RIB REPAIR ; VASECTOMY; CAROTID ENDARTERECTOMY 02/15/17 Hx Anesthesia Reactions: Yes - sometimes takes alot to put under and long time to wake up Infectious Disease History: No Infectious Disease History: Denies: Traveled Outside the [place] in Last 30 Days - Family History Known Family History: Positive: Hypertension - Social History Alcohol Use: None Hx Substance Use: No Substance Use Type: Reports: None Hx Tobacco Use: No Smoking Status (MU): Never Smoked Tobacco Review of Systems Negative: Fever, Chills Positive: hematuria, other - Pressure sensation when voiding, urinary retention All Other Systems Reviewed And Are Negative: Yes Physical Exam - Summary Physical Exam Summary: VITAL SIGNS: Reviewed. GENERAL: Patient is a well-developed and nourished MALE who is lying comfortable in the stretcher. Patient is not in any acute respiratory distress. HEAD AND FACE: No signs of trauma. No ecchymosis, hematomas or skull depressions. No sinus tenderness. EYES: PERRLA, EOMI x 2, No injected conjunctiva, no nystagmus. EARS: Hearing grossly intact. Ear canals and tympanic membranes are within normal limits. MOUTH: Oropharynx within normal limits. NECK: Supple, trachea is midline, no adenopathy, no JVD, no carotid bruit, no c- spine tenderness, neck with full ROM. CHEST: Symmetric, no tenderness at palpation LUNGS: Clear to auscultation bilaterally. No wheezing or crackles. CVS: Regular rate and rhythm, S1 and S2 present, no murmurs or gallops appreciated. ABDOMEN: Soft. There is suprapubic tenderness and fullness. No signs of distention. No rebound no guarding, and no masses palpated. Bowel sounds are normal. EXTREMITIES: FROM in all major joints, no edema, no cyanosis or clubbing. NEURO: Alert and oriented x 3. No acute neurological deficits. Speech is normal and follows commands. SKIN: Dry and warm Triage Information Reviewed: Yes Vital Signs On Initial Exam: Initial Vitals Temp Pulse Resp BP Pulse Ox 98.6 F 64 20 176/85 98 04/11/17 02:14 04/11/17 02:14 04/11/17 02:14 04/11/17 02:14 04/11/17 02:14 Vital Signs Reviewed: Yes Procedures - Procedure Summary Procedure Summary: MCWILLIAMS PLACEMENT: A Mcwilliams placement was done due to urinary retention and hematuria. This was done with a 22 Bulgarian. The patient did have shruthi hematuria at the beginning, which came out with irrigation. The patient was irrigated with 400 ccs of normal saline. The urine is lightly pink at this time. Diagnostics - Vital Signs Vital Signs Temp Pulse Resp BP Pulse Ox 04/11/17 02:14 98.6 F 64 20 176/85 98 - Laboratory Lab Statement: Any lab studies that have been ordered have been reviewed, and results considered in the medical decision making process. GIGU Course/Dx - Course Assessment/Plan: The patient is an 81 year old male referred to the emergency department by his urologist with urinary retention and hematuria that began earlier today. The patient had TURP performed a week ago. A Mcwilliams placement was done due to urinary retention and hematuria. The patient did have shruthi hematuria at the beginning of placement which came out with irrigation. The urine is lightly pink at this time and it is getting clearer. The patient will be discharged home with Mcwilliams catheter and bag. He will follow up with Dr. Layton tomorrow. - Diagnoses Provider Diagnoses: Urinary retention, Hematuria Discharge - Discharge Plan Condition: Stable Disposition: HOME Patient Education Materials: Hematuria (ED), Urinary Retention in Men (ED) Referrals: Jose Layton MD [Medical Doctor] - 1 Day Additional Instructions: Follow up with Dr. Layton tomorrow. Return to the emergency department for any new or worsening symptoms. The documentation as recorded by the Karthik zacarias Thomas accurately reflects the service I personally performed and the decisions made by , Dayanara Robertson MD.
[2017-04-11 04:24] VITALS: BP 142/63
[2017-04-11] MEDS ORDERED: Lidocaine 2% JELLY* 10 ML JELLY TOPICAL ONE (04:33)
== END 2017-04-11 04:53 | disposition home or self-care (01) ==
LOC: ED 02:12
DX: R33.9 Retention of urine, unspecified (principal); R31.9 Hematuria, unspecified; I25.10 Atherosclerotic heart disease of native coronary artery without angina pectoris; I10 Essential (primary) hypertension; I73.9 Peripheral vascular disease, unspecified; J45.909 Unspecified asthma, uncomplicated; Z88.6 Allergy status to analgesic agent; K21.9 Gastro-esophageal reflux disease without esophagitis; K44.9 Diaphragmatic hernia without obstruction or gangrene; Z86.73 Personal history of transient ischemic attack (TIA), and cerebral infarction without residual deficits; G58.9 Mononeuropathy, unspecified; F41.9 Anxiety disorder, unspecified; Z88.1 Allergy status to other antibiotic agents; Z88.5 Allergy status to narcotic agent; Z88.2 Allergy status to sulfonamides; Z96.653 Presence of artificial knee joint, bilateral; Z90.49 Acquired absence of other specified parts of digestive tract
CPT/HCPCS: 51702; 99282; A9270-GY

== ENCOUNTER 2018-01-24 10:20 | Day surgery (SDC) | payer MEDICARE, BC ==
[~2018-01-24 10:20] MED LIST changes: -Dexamethasone IV* 4 MG/ML 1 ML (4 MG) IV SLOW PU ONE; -Famotidine IV* 10 MG/ML 2 ML (20 mg) IV ONE; -Gentamicin ADULT (*) 160 MG in NS 0.9% 100 ML* 100 ML IVPB ONE; -Sodium Citrate/Citric Acid* 15 ML UDC PO ONE
[2018-01-24] MEDS ORDERED: Metoprolol Tartrate TAB* 25 MG ONE (10:50)
[2018-01-24] MEDS ORDERED: Midazolam* 1 MG/ML 2 ML VIAL (2 MG) ONE (12:38)
[2018-01-24] MEDS ORDERED: Ketorolac 0.5% OPHTH (NF) 0.5 % 5 ML BTL ONE (12:57)
[2018-01-24] MEDS ORDERED: Neomycin/Polymy/Dex OPTH.SUSP* MAXITROL 0.1% 5 ML ONE (12:57)
[2018-01-24] MEDS ORDERED: acetaZOLAMIDE TAB* 250 MG ONE (12:57)
[2018-01-24] MEDS ORDERED: Cyclopentolate 1% OPTH.SOL* 2 ML BTL ONE (12:57)
[2018-01-24] MEDS ORDERED: Proparacaine 0.5% OPHTH.SOL* 15 ML BTL ONE (12:57)
[2018-01-24] MEDS ORDERED: Lidocaine 2% EPI 1:200000 MPF*10-20 ML VIAL ONE (12:57)
[2018-01-24] MEDS ORDERED: Povidone Iodine 5% OPTH* 30 ML BTL ONE (12:57)
[2018-01-24] MEDS ORDERED: Phenylephrine 2.5% OPTH.SOL* 2 ML BTL ONE (12:57)
[2018-01-24] MEDS ORDERED: Lidocaine 1%* 5 ML VIAL ONE (12:57)
[2018-01-24 13:10] VITALS: BP 130/83
--- NOTE | 2018-01-25 06:54 | OP ---
DATE OF OPERATION: 01/24/18 [facility] DATE OF : 33 SURGEON: Winston Fierro M.D. PREOPERATIVE DIAGNOSIS: Cataract, right eye. POSTOPERATIVE DIAGNOSIS: Cataract, right eye. OPERATIVE PROCEDURE: Extracapsular cataract extraction with intraocular lens implant right eye. DESCRIPTION OF PROCEDURE: The patient was brought to the operating room after being given 1/2% Alcaine with epinephrine drops in the preoperative area. The eye was prepped and draped in the usual sterile fashion. Sterile drape and eyelid speculum were placed. Again, topical 1/2% Alcaine with epinephrine was given. A paracentesis incision was made at the 9 o'clock position with the No.75 blade. Clear cornea incision 2.2 x 2.2-mm was created at the 12 o'clock position starting at the anterior limbus using the 2.2-mm keratome. The anterior chamber was irrigated with 0.4 mL of 1% non-preservative intracameral lidocaine and filled with DisCoVisc. A capsulorrhexis was completed using the cystotome and the Utrata forceps. Hydrodissection was performed with balanced salt solution. The lens nucleus was removed with the Phacoemulsification handpiece without incident. Cortex was removed with the irrigation-aspiration handpiece. The capsular bag was re-inflated using DisCoVisc and an SN60WF 21.5 implant was inserted with the shooter. The irrigation-aspiration handpiece was used to remove all residual DisCoVisc. The eye was refilled with balanced salt solution and the wound checked and found to be watertight. Topical Maxitrol drops were given. [id number]/[facility] #: [id number] [facility]ENTERShahbaz
== END 2018-01-24 13:13 | disposition home or self-care (01) ==
LOC: OREAST 10:20
PROVIDERS: ATTEND Specialist
DX: H25.811 Combined forms of age-related cataract, right eye (principal); H01.021 Squamous blepharitis right upper eyelid; H01.024 Squamous blepharitis left upper eyelid; Z85.038 Personal history of other malignant neoplasm of large intestine; Z86.73 Personal history of transient ischemic attack (TIA), and cerebral infarction without residual deficits; Z79.01 Long term (current) use of anticoagulants; Z85.528 Personal history of other malignant neoplasm of kidney
CPT/HCPCS: A9270-GY; J2250; V2632

== ENCOUNTER 2018-01-31 07:05 | Day surgery (SDC) | payer MEDICARE, BC ==
[2018-01-31] MEDS ORDERED: Lidocaine 2% PF * 5 ML VIAL ONE (09:11)
[2018-01-31] MEDS ORDERED: Propofol* 10 MG/ML 20 ML BTL ONE (09:11)
[2018-01-31 09:37] VITALS: BP 131/66
[2018-01-31] MEDS ORDERED: Cyclopentolate 1% OPTH.SOL* 2 ML BTL ONE (10:47)
[2018-01-31] MEDS ORDERED: Lidocaine 2% EPI 1:200000 MPF*10-20 ML VIAL ONE (10:47)
[2018-01-31] MEDS ORDERED: Neomycin/Polymy/Dex OPTH.SUSP* MAXITROL 0.1% 5 ML ONE (10:47)
[2018-01-31] MEDS ORDERED: Povidone Iodine 5% OPTH* 30 ML BTL ONE (10:47)
[2018-01-31] MEDS ORDERED: Proparacaine 0.5% OPHTH.SOL* 15 ML BTL ONE (10:47)
[2018-01-31] MEDS ORDERED: Lidocaine 1%* 5 ML VIAL ONE (10:47)
[2018-01-31] MEDS ORDERED: Phenylephrine 2.5% OPTH.SOL* 2 ML BTL ONE (10:47)
[2018-01-31] MEDS ORDERED: Ketorolac 0.5% OPHTH (NF) 0.5 % 5 ML BTL ONE (10:47)
--- NOTE | 2018-01-31 11:40 | OP ---
OPERATIVE NOTE: DATE OF OPERATION: 01/31/18 DATE OF : 33 SURGEON: Winston Fierro MD PREOPERATIVE DIAGNOSIS: Cataract, left eye. POSTOPERATIVE DIAGNOSIS: Cataract, left eye. OPERATIVE PROCEDURE: Extracapsular cataract extraction with intraocular lens implant, left eye. PROCEDURE: The patient was brought to the operating room after being given 1/2% Alcaine with epineph rine drops in the preoperative area. The eye was prepped and draped in the usual sterile fashion. S terile drape and eyelid speculum were placed. Again, topical 1/2% Alcaine with epinephrine was given . A paracentesis incision was made at the 3 o'clock position with the No.75 blade. Clear cornea inc ision 2.2 x 2.2-mm was created at the 6 o'clock position starting at the anterior limbus using the 2. 2-mm keratome. The anterior chamber was irrigated with 0.4 mL of 1% non-preservative intracameral li docaine and filled with DisCoVisc. A capsulorrhexis was completed using the cystotome and the Utrata forceps. Hydrodissection was performed with balanced salt solution. The lens nucleus was removed wi th the Phacoemulsification handpiece without incident. Cortex was removed with the irrigation-aspira tion handpiece. The capsular bag was re-inflated using DisCoVisc and an SN60WF 21.5 implant was inse rted with the shooter. The irrigation-aspiration handpiece was used to remove all residual DisCoVisc . The eye was refilled with balanced salt solution and the wound checked and found to be watertight. Topical Maxitrol drops were given. [id number]/[facility] #: [id number]
== END 2018-01-31 09:41 | disposition home or self-care (01) ==
LOC: OREAST 07:05
PROVIDERS: ATTEND Specialist
DX: H25.812 Combined forms of age-related cataract, left eye (principal); H01.021 Squamous blepharitis right upper eyelid; H01.024 Squamous blepharitis left upper eyelid; K21.9 Gastro-esophageal reflux disease without esophagitis; Z86.73 Personal history of transient ischemic attack (TIA), and cerebral infarction without residual deficits; Z79.01 Long term (current) use of anticoagulants
CPT/HCPCS: A9270-GY; J2704; V2632